=== PATIENT | female | born 1950 | race Caucasian/White ===

== ENCOUNTER → 2017-07-15 08:14 | Outpatient (CLI) | payer MEDICARE, OTHER, SELFPAY ==
[2017-07-15 10:24] LABS: Alanine Aminotransferase 42 U/L (12-78); Albumin Level 3.4 gm/dL (3.4-5.0); Albumin/Globulin Ratio 1.2 (1.1-1.8); Alkaline Phosphatase 90 U/L (46-116); Anion Gap 8.2 mEq/L (5-15); Aspartate Amino Transferase 38 U/L (15-37); Bilirubin,Total 0.4 mg/dL (0.2-1.0); Blood Urea Nitrogen 19 mg/dL (7-18); Calcium 8.5 mg/dL (8.5-10.1); Carbon Dioxide 31 mmol/L (21.0-32.0); Chloride 107 mmol/L (98-107); Chol/HDL Ratio 2.6 (1-3.5); Cholesterol 172 mg/dL (140-200); Creatinine,Serum 0.74 mg/dL (0.55-1.02); Estimated Glomerular Filt Rate 78 ml/min (>60); GFR (African American) 94 ML/MIN (>60); Globulin 2.9 gm/dl (1.3-3.2); Glucose 91 mg/dL (74-106); HDL Cholesterol 67 mg/dL (29-89); LDL Cholesterol 85 mg/dL (0-130); Potassium 4.2 mmoL/L (3.5-5.1); Sodium 142 mmol/L (136-145); Total Protein,Serum 6.3 gm/dL (6.4-8.2); Triglycerides 101 mg/dL (30-200); VLDL Cholesterol 20 mg/dL (0-40)
== END ==
PROVIDERS: PCP Family Medicine; Visit Provider Internal Medicine Cardiovascular Disease
DX: E78.00 Pure hypercholesterolemia, unspecified (principal)
CPT/HCPCS: 36415; 80053; 80061

== ENCOUNTER → 2017-12-26 11:16 | Outpatient (CLI) | payer MEDICARE, OTHER, SELFPAY ==
--- NOTE | 2017-12-26 11:25 | XR_ITS ---
EXAM: XR lumbar spine min 4V HISTORY: ITS.REASON: LOW BACK PAIN ORDERING PHYSICIAN: KEN Coto PATIENT AGE: 67 years COMPARISON: None FINDINGS: Minimal dextroscoliosis. Degenerative disc disease is present from L2 to S1. Small endplate osteophytes are present at L3-L4 and L5. No fracture or dislocation. No lytic or blastic change. Mild facet arthritic changes L5-S1. No lytic or blastic change. IMPRESSION: Degenerative disc disease with facet arthritic change and mild lumbar scoliosis convex right
== END ==
PROVIDERS: PCP Family Medicine; Visit Provider Physician Assistant
DX: M54.5 Low back pain (principal)
CPT/HCPCS: 72110

== ENCOUNTER → 2018-01-02 14:52 | Outpatient (CLI) | payer MEDICARE, OTHER, SELFPAY ==
--- NOTE | 2018-01-02 14:54 | XR_ITS ---
XR DEXA axial skeleton HISTORY: ITS.REASON: POST MENOPAUSAL ORDERING PHYSICIAN: KEN Coto PATIENT AGE: 67 years COMPARISON: None FINDINGS: The BMD measured at the left femoral neck is 0.651 g/cm squared with a T score of -2.8. This is considered Osteoporotic according to the World Health Organization criteria. Fracture risk is High. Treatment is advised. IMPRESSION: Osteoporosis with high fracture risk. Treatment is suggested. Follow-up exam recommended December 2018 to follow the course of the treatment
== END ==
PROVIDERS: Family Provider Family Medicine; PCP Family Medicine; Visit Provider Physician Assistant
DX: Z78.0 Asymptomatic menopausal state (principal)
CPT/HCPCS: 77080

== ENCOUNTER → 2018-10-21 08:44 | Outpatient (CLI) | payer MEDICARE, OTHER, SELFPAY ==
[2018-10-21 14:41] LABS: Alanine Aminotransferase 40 U/L (12-78); Albumin Level 3.8 gm/dL (3.4-5.0); Albumin/Globulin Ratio 1.1 (1.1-1.8); Alkaline Phosphatase 102 U/L (46-116); Anion Gap 15.2 mEq/L (5-15); Aspartate Amino Transferase 31 U/L (15-37); Bilirubin,Total 0.4 mg/dL (0.2-1.0); Blood Urea Nitrogen 25 mg/dL (7-18); Calcium 9.2 mg/dL (8.5-10.1); Carbon Dioxide 27 mmol/L (21.0-32.0); Chloride 104 mmol/L (98-107); Chol/HDL Ratio 3.2 (1-3.5); Cholesterol 177 mg/dL (140-200); Creatinine,Serum 0.73 mg/dL (0.55-1.02); Estimated Glomerular Filt Rate 79 ml/min (>60); GFR (African American) 96 ML/MIN (>60); Globulin 3.4 gm/dl (1.3-3.2); Glucose 95 mg/dL (74-106); HDL Cholesterol 56 mg/dL (29-89); LDL Cholesterol 104 mg/dL (0-130); Potassium 4.2 mmoL/L (3.5-5.1); Sodium 142 mmol/L (136-145); Total Protein,Serum 7.2 gm/dL (6.4-8.2); Triglycerides 84 mg/dL (30-200); VLDL Cholesterol 17 mg/dL (0-40)
== END ==
PROVIDERS: Visit Provider Nurse Practitioner
DX: E78.2 Mixed hyperlipidemia (principal)
CPT/HCPCS: 36415; 80053; 80061

== ENCOUNTER → 2019-12-08 10:28 | Outpatient (CLI) | payer MEDICARE, OTHER, SELFPAY ==
[2019-12-08 12:31] LABS: Alanine Aminotransferase 30 U/L (12-78); Albumin Level 4.1 g/dl (3.5-5.0); Albumin/Globulin Ratio 1.5 (1.1-1.8); Alkaline Phosphatase 107 U/L (38-126); Aspartate Amino Transferase 50 U/L (14-36); Blood Urea Nitrogen 25 mg/dl (7-17); Calcium 9.3 mg/dl (8.4-10.2); Carbon Dioxide 33 mmol/L (22.0-30.0); Chol/HDL Ratio 2.7 (1-3.5); Cholesterol 185 mg/dl (140-200); Estimated Glomerular Filt Rate 83 ml/min (>60); GFR (African American) 100 ML/MIN (>60); Globulin 2.8 g/dL (1.3-3.2); Glucose 99 mg/dl (74-100); HDL Cholesterol 69 mg/dl (40-60); Potassium 4.5 mmoL/L (3.5-5.1); Sodium 140 mmol/L (136-145); Total Protein,Serum 6.9 g/dl (6.3-8.2); Triglycerides 89 mg/dl (30-150); VLDL Cholesterol 18 mg/dL (0-40)
[2019-12-08 12:33] LABS: Bilirubin,Total < 0.1 mg/dl (0.2-1.3)
[2019-12-08 12:39] LABS: Anion Gap 9.5 mEq/L (5-15); Chloride 102 mmol/L (98-107)
[2019-12-08 12:41] LABS: Direct LDL Cholesterol 96.64 mg/dL (100-129)
== END ==
PROVIDERS: Visit Provider Internal Medicine Cardiovascular Disease
DX: E78.2 Mixed hyperlipidemia (principal)
CPT/HCPCS: 36415; 80053; 80061

== ENCOUNTER 2020-04-16 11:47 | Emergency (ER) | payer MEDICARE, OTHER, SELFPAY ==
[2020-04-16 13:28] VITALS: RESP 18; O2SAT 98; BMI 23.3
[2020-04-16 13:30] VITALS: BP 00/00; PULSE 0; RESP 18; TEMP -17.7; TEMP 0; O2SAT 98
== END 2020-04-16 13:31 | disposition home or self-care (01) ==
LOC: UTC 11:54
PROVIDERS: Emergency Provider Nurse Practitioner Family; PCP Family Medicine
DX: Z20.828 Contact with and (suspected) exposure to other viral communicable diseases (principal)
CPT/HCPCS: G0463; 99201; U0003

== ENCOUNTER → 2020-06-28 09:01 | Outpatient (CLI) | payer MEDICARE, OTHER, SELFPAY ==
[2020-06-28 10:47] LABS: Glucose,Fasting 98 mg/dl (74-100)
[2020-06-28 11:13] LABS: Hemoglobin A1C 5.3 % (4.0-6.0)
== END ==
PROVIDERS: PCP Family Medicine; Visit Provider Physician Assistant
DX: R73.01 Impaired fasting glucose (principal)
CPT/HCPCS: 36415; 82947; 83036

== ENCOUNTER → 2020-07-01 10:17 | Outpatient (CLI) | payer MEDICARE, OTHER, SELFPAY ==
--- NOTE | 2020-07-01 10:22 | XR_ITS ---
PROCEDURE: XR DEXA AXIAL SKELETON CLINICAL HISTORY: OSTEOPOROSIS COMPARISON: CR DEXAAX XR DEXA axial skeleton from 01/02/2018 FINDINGS: The right hip BMD is 0.542 with a T-score of -2.8. The left hip BMD is 0.511 with a T-score of -3.0. The lumbar spine BMD is 0.882 with a T-score of -1.5. Previously the lowest density was at the left femoral neck with a T-score -2.8 IMPRESSION: This patient is considered osteoporotic according to the World Health Organization criteria. Fracture risk is high. Treatment is advised. Based on these results a follow-up exam is recommended in 1 year. Dictated by: Fox Chang MD 07/02/2020 08:09 Fox Chang MD in [place] 07/02/2020 08:09
== END ==
PROVIDERS: PCP Family Medicine; Visit Provider Physician Assistant
DX: M81.0 Age-related osteoporosis without current pathological fracture (principal)
CPT/HCPCS: 77080

== ENCOUNTER 2020-07-27 10:05 | Outpatient (CLI) | payer MEDICARE, OTHER, SELFPAY ==
[2020-07-27 10:30] VITALS: BP 152/79; PULSE 71; RESP 18; TEMP 36.2; O2SAT 100
== END 2020-07-27 10:30 | disposition home or self-care (01) ==
LOC: INF 10:10
PROVIDERS: Visit Provider Physician Assistant
DX: M81.0 Age-related osteoporosis without current pathological fracture (principal)
CPT/HCPCS: 96372; J0897

== ENCOUNTER 2020-08-29 17:37 | Emergency (ER) | payer MEDICARE, OTHER, SELFPAY ==
[2020-08-29 17:55] VITALS: BP 146/55; PULSE 77; RESP 14; TEMP 37; O2SAT 95; BMI 17.0
[2020-08-29 18:02] VITALS: BP 139/62; PULSE 73; RESP 14; TEMP 36.6
--- NOTE | 2020-08-29 18:15 | HMH.EDUTC ---
[facility] [place] Disposition Clinical Impression: Viral syndrome, Exposure to COVID-19 virus Disposition: Home, Self-Care Condition on Discharge: Good Instructions: Preventing the Spread of Coronavirus Discharge Instructions Additional Instructions: Drink plenty of fluids. Take tylenol for pain or fever. Return if you begin to have difficulty breathing. Follow up with your regular doctor. GO TO THE ER FOR ANY WORSENING SYMPTOMS Referrals: Lorena Whitley MD [Primary Care Provider] - Time of Disposition: 18:16 Medical Decision Making - Medical Records Medical records reviewed: No: I reviewed the patient's medical records. - Lars Inquiry Pt receiving controlled substance: No Vital Signs: 08/29/20 17:55 08/29/20 18:02 Temperature 98.6 F 98 F Temperature Source Oral Pulse Rate 73 Pulse Rate [Right] 77 Respiratory Rate 14 14 Blood Pressure 139/62 Blood Pressure [Right Arm] 146/55 H Blood Pressure Mean [Right Arm] 85 Blood Pressure Source [Right Arm] Automatic Cuff Blood Pressure Position [Right Arm] Sitting 02 Sat by Pulse Oximetry 95 Oxygen Delivery Method Room Air [facility] [place] HPI - General Stated complaint: covid test Time Seen by Provider: 08/29/20 18:15 Mode of Arrival: Ambulatory Source of Information: Patient Limitations: No Limitations Description of Symptoms (Recalled from Triage Doc. by RN): PT IS HAVING NASAL CONGESTION, COUGH AND SUÁREZ. SHE THINKS ITS A COLD BUT WANTS A COVID TEST TO BE ON THE SAFE SIDE. HEENT Symptoms (Recalled from RN notes): Yes (NASAL CONGESTION AND SUÁREZ) Resp Symptoms (Recalled from RN notes): Yes (COUGH) Skin Symptoms (Recalled from RN notes): No MS Symptoms (Recalled from RN notes): No Functional Status (Recalled from RN notes): NA - History of Present Illness Provider Complaint: She states that for the past 2 days she has had a sore throat, cough and sinus congestion. She denies any known exposure to covid-19, but she wanted to make sure. - Related Data Home Medications Medication Instructions Recorded Confirmed Aspirin [Aspirin 81mg EC Tab] 81 mg PO DAILY 07/27/20 07/27/20 Atorvastatin Calcium [Lipitor 80mg 80 mg PO HS 07/27/20 07/27/20 Tablet*] Calcium Carbonate [Calcium] 1,000 mg PO DAILY 07/27/20 07/27/20 Cholecalciferol (Vitamin D3) 2,000 unit PO DAILY 07/27/20 07/27/20 [Vitamin D3 1,000 Unit Cap] Multivitamin 1 each PO DAILY 07/27/20 07/27/20 Omeprazole 40 mg PO DAILY 07/27/20 07/27/20 PARoxetine HCL [Paxil 10mg Tablet] 10 mg PO DAILY 07/27/20 07/27/20 Potassium Chloride 10 meq PO DAILY 07/27/20 07/27/20 Propranolol HCl [Propranolol HCl 120 mg PO HS 07/27/20 07/27/20 ER] Allergies Allergy/AdvReac Type Severity Reaction Status Date / Time No Known Allergies Allergy Unverified 06/11/17 14:59 - Worker's Comp Is this a Worker's Comp case?: No [facility] History - Hepatitis A Screen Drug use history?: No High risk sexual behaviors?: No History of sexually transmitted infection?: No Currently employed?: No Childcare worker?: No Do you have indoor plumbing?: Yes Do you have electricity?: Yes Attestation statement:: This patient has been screened for Hepatitis A risk factors. I have reviewed the patient's past medical history: Yes Medical History: Reports:: Arrhythmia, Hyperlipidemia Laterality Cases: Right: Lumpectomy, Bilateral: Tonsillectomy - Social History Smoking Status: Unknown if ever smoked Alcohol Intake: never Occupational Status: employed Housing: house Household Members: spouse ROS Obtained: Yes All systems reviewed & no additional complaints - Constitutional Constitutional: Reports system reviewed and no additional complaints, except as docu - Eyes Eyes: Reports system reviewed and no additional complaints, except as docu - ENT Ears, Nose, Mouth, and Throat: Reports system reviewed and no additional complaints, except as docu - Cardiovascular Cardiovascular: Reports system reviewed and no addit
== END 2020-08-29 18:21 | disposition home or self-care (01) ==
PROVIDERS: Emergency Provider Nurse Practitioner Family; PCP Family Medicine
DX: Z20.822 Contact with and (suspected) exposure to COVID-19 (principal); B34.9 Viral infection, unspecified; E78.5 Hyperlipidemia, unspecified; Z79.899 Other long term (current) drug therapy
CPT/HCPCS: G0463; 99202; U0003

== ENCOUNTER 2021-02-01 13:43 | Outpatient (CLI) | payer MEDICARE, OTHER, SELFPAY ==
[2021-02-01 13:45] VITALS: BP 124/63; PULSE 68; RESP 18; TEMP 36.8; O2SAT 98
== END 2021-02-01 14:00 | disposition home or self-care (01) ==
LOC: INF 13:43
PROVIDERS: PCP Family Medicine; Visit Provider Family Medicine
DX: M81.0 Age-related osteoporosis without current pathological fracture (principal)
CPT/HCPCS: 96372; J0897

== ENCOUNTER → 2021-04-28 09:36 | Outpatient (CLI) | payer MEDICARE, OTHER, SELFPAY | PROVIDERS: PCP Family Medicine; Visit Provider Nurse Practitioner | DX: Z20.822 Contact with and (suspected) exposure to COVID-19 (principal) | CPT/HCPCS: C9803; U0003; U0005 ==

== ENCOUNTER → 2021-06-22 12:22 | Outpatient (CLI) | payer MEDICARE, OTHER, SELFPAY ==
[2021-06-22 14:04] LABS: Basophils % 0.6 % (0.1-2.0); Eosinophils # 0.1 K/mm3 (0.0-0.4); Eosinophils % 2.1 % (0.1-12.0); Hematocrit 38.9 % (37.0-47.0); Hemoglobin 12.7 g/dL (12.2-16.2); Lymphocytes # 0.8 K/mm3 (0.7-4.5); Mean Corpuscular HGB Conc 32.7 g/dL (31.8-35.4); Mean Corpuscular Hemoglobin 31.1 pg (27.0-31.2); Mean Corpuscular Volume 95.2 fl (81-99); Mean Platelet Volume 9.7 fl (7.4-10.4); Monocytes # 0.4 K/mm3 (0.1-1.0); Monocytes % 9.4 % (1.7-9.3); Neutrophils # 3.1 K/mm3 (1.8-7.8); Platelet Count 204 K/mm3 (142-424); Red Blood Count 4.08 M/mm3 (4.20-5.40); Red Cell Distribution Width 12.8 % (11.5-17.5); White Blood Count 4.4 K/mm3 (4.8-10.8)
== END ==
PROVIDERS: PCP Family Medicine; Visit Provider Physician Assistant
DX: U07.1 COVID-19 (principal)
CPT/HCPCS: 36415; 85025; C9803; U0003; U0005

== ENCOUNTER → 2021-06-26 07:53 | Outpatient (CLI) | payer MEDICARE, OTHER, SELFPAY | PROVIDERS: PCP Family Medicine; Visit Provider Physician Assistant | DX: U07.1 COVID-19 (principal) ==

== ENCOUNTER → 2021-06-26 15:12 | Outpatient (CLI) | payer MEDICARE, OTHER, SELFPAY ==
[2021-06-26] VITALS (8 sets, daily range): BP systolic 117–147; BP diastolic 60–75; PULSE 61–76; RESP 18; O2SAT 97–99
== END ==
PROVIDERS: Visit Provider Physician Assistant
DX: U07.1 COVID-19 (principal); Z23 Encounter for immunization
CPT/HCPCS: 96365

== ENCOUNTER → 2021-07-03 11:59 | Outpatient (CLI) | payer MEDICARE, OTHER, SELFPAY ==
--- NOTE | 2021-07-03 12:06 | XR_ITS ---
FINAL REPORT CLINICAL HISTORY: COVID TESTING COMPARISON: July 30, 2016 FINDINGS: SINGLE VIEW CHEST. The heart is normal in size. The mediastinum is unremarkable. There is mild bibasilar scarring or atelectasis. There is no pneumothorax. IMPRESSION: Mild bibasilar scarring or atelectasis. Reviewed, Interpreted and Dictated by Henry Gil III, MD Transcribed by Geena Salcido Authenticated by Henry Gil III, MD on 07/03/2021 01:24:01 PM [facility]
[2021-07-03 12:38] LABS: Basophils # 0.1 K/mm3 (0-0.2); Basophils % 0.8 % (0.1-2.0); Eosinophils % 0.7 % (0.1-12.0); Hematocrit 41.3 % (37.0-47.0); Hemoglobin 13.4 g/dL (12.2-16.2); Lymphocytes # 1.1 K/mm3 (0.7-4.5); Lymphocytes % 16.5 % (10-50); Mean Corpuscular HGB Conc 32.5 g/dL (31.8-35.4); Mean Corpuscular Hemoglobin 30.8 pg (27.0-31.2); Mean Corpuscular Volume 94.6 fl (81-99); Mean Platelet Volume 9.1 fl (7.4-10.4); Monocytes # 0.5 K/mm3 (0.1-1.0); Monocytes % 6.8 % (1.7-9.3); Neutrophils # 5.1 K/mm3 (1.8-7.8); Neutrophils % 75.2 % (37.0-80.0); Platelet Count 190 K/mm3 (142-424); Red Blood Count 4.36 M/mm3 (4.20-5.40); Red Cell Distribution Width 12.8 % (11.5-17.5); White Blood Count 6.8 K/mm3 (4.8-10.8)
== END ==
PROVIDERS: PCP Nurse Practitioner Family; Visit Provider Nurse Practitioner Family
DX: Z20.822 Contact with and (suspected) exposure to COVID-19 (principal)
CPT/HCPCS: 36415; 71045; 85025

== ENCOUNTER → 2021-08-03 10:23 | Outpatient (CLI) | payer MEDICARE, OTHER, SELFPAY ==
[2021-08-03 12:55] LABS: Alanine Aminotransferase 37 U/L (12-78); Albumin Level 3.9 g/dl (3.5-5.0); Albumin/Globulin Ratio 1.5 (1.1-1.8); Alkaline Phosphatase 95 U/L (38-126); Anion Gap 9.5 mEq/L (5-15); Aspartate Amino Transferase 52 U/L (14-36); Bilirubin,Total 0.5 mg/dl (0.2-1.3); Blood Urea Nitrogen 22 mg/dl (7-17); Carbon Dioxide 31 mmol/L (22.0-30.0); Chloride 104 mmol/L (98-107); Chol/HDL Ratio 2.7 (1-3.5); Cholesterol 142 mg/dl (140-200); Estimated Glomerular Filt Rate 98 ml/min (>60); GFR (African American) 119 ML/MIN (>60); Globulin 2.6 g/dL (1.3-3.2); Glucose 90 mg/dl (74-100); HDL Cholesterol 53 mg/dl (40-60); Potassium 4.5 mmoL/L (3.5-5.1); Sodium 140 mmol/L (136-145); Total Protein,Serum 6.5 g/dl (6.3-8.2); Triglycerides 85 mg/dl (30-150); VLDL Cholesterol 17 mg/dL (0-40)
[2021-08-03 13:06] LABS: Direct LDL Cholesterol 70.15 mg/dL (100-129)
== END ==
PROVIDERS: PCP Family Medicine; Visit Provider Internal Medicine Cardiovascular Disease
DX: E78.2 Mixed hyperlipidemia (principal)
CPT/HCPCS: 36415; 80053; 80061

== ENCOUNTER 2021-08-14 10:06 | Outpatient (CLI) | payer MEDICARE, OTHER, SELFPAY ==
[2021-08-14 10:17] VITALS: BP 131/83; PULSE 82; RESP 18; TEMP 36.4; O2SAT 99
== END 2021-08-14 10:45 | disposition home or self-care (01) ==
LOC: INF 10:08
PROVIDERS: PCP Family Medicine; Visit Provider Family Medicine
DX: M81.0 Age-related osteoporosis without current pathological fracture (principal)
CPT/HCPCS: 96372; J0897

== ENCOUNTER 2021-11-24 13:23 | Emergency (ER) | payer MEDICARE, OTHER, SELFPAY ==
[2021-11-24 13:36] VITALS: BP 143/58; PULSE 70; RESP 17; TEMP 37.1; O2SAT 99; BMI 21.6
--- NOTE | 2021-11-24 14:10 | HMH.EDUTC ---
[facility] [place] Disposition Clinical Impression: Viral syndrome Disposition: Home, Self-Care Condition on Discharge: Good Instructions: DI for COVID-19 (Suspected or Confirmed ), Preventing the Spread of Coronavirus Discharge Instructions Additional Instructions: Drink plenty of fluids. Take tylenol for pain or fever. Take the medications as directed. Follow up with your regular doctor. GO TO THE ER FOR ANY WORSENING SYMPTOMS Quarantine until you know the results of your covid-19 test. Notify your school or workplace of your results and follow their instructions regarding return to work/school. Prescriptions: Ondansetron [Zofran 4mg ODT] 4 mg PO Q8HP PRN #20 tab PRN Reason: Nausea Transmission Status: Received by [id number] Benzonatate [Benzonatate 100mg cap] 100 mg PO TIDP PRN #30 cap PRN Reason: Cough Transmission Status: Received by [id number] Referrals: Lorena Whitley MD [Primary Care Provider] - Time of Disposition: 14:27 Medical Decision Making - Medical Records Medical records reviewed: No: I reviewed the patient's medical records. - Lars Inquiry Pt receiving controlled substance: No Vital Signs: 11/24/21 13:36 Temperature 98.7 F Temperature Source Oral Pulse Rate [Left Radial] 70 Respiratory Rate 17 Blood Pressure [Right Arm] 143/58 H Blood Pressure Mean [Right Arm] 86 02 Sat by Pulse Oximetry 99 - Lab Data Lab results reviewed: Yes: I reviewed the patient's lab results. Orders (Tests/Meds): ORDERS Category Date Time Status Covid-19 Nasal PCR ([facility]) Routine Lab 11/24/21 13:36 Ordered [facility] [place] HPI - General Stated complaint: sore throat,cough,headache Time Seen by Provider: 11/24/21 14:10 Source of Information: Patient Description of Symptoms (Recalled from Triage Doc. by RN): patient comes in for a covid test. patient states she has had respiratory symptoms since saturday HEENT Symptoms (Recalled from RN notes): No Resp Symptoms (Recalled from RN notes): Yes Skin Symptoms (Recalled from RN notes): No MS Symptoms (Recalled from RN notes): No Functional Status (Recalled from RN notes): wnl - History of Present Illness Provider Complaint: She states that for the past 3 days she has had a nonproductive cough and a scratchy sore throat. She denies any fever or chills or body aches, but she wants to be checked for covid-19 just to be safe because she is going to have to be around several other people in a few days and she does not want to take a chance on giving anyone covid-19. She denies any chest pain and shortness of breath. - Related Data Home Medications Medication Instructions Recorded Confirmed Aspirin [Aspirin 81mg EC Tab] 81 mg PO DAILY 07/27/20 08/14/21 Atorvastatin Calcium [Lipitor 80mg 80 mg PO HS 07/27/20 08/14/21 Tablet*] Calcium Carbonate [Calcium] 1,000 mg PO DAILY 07/27/20 08/14/21 Cholecalciferol (Vitamin D3) 2,000 unit PO DAILY 07/27/20 08/14/21 [Vitamin D3 1,000 Unit Cap] Multivitamin 1 each PO DAILY 07/27/20 08/14/21 Omeprazole 40 mg PO DAILY 07/27/20 08/14/21 PARoxetine HCL [Paxil 10mg Tablet] 10 mg PO DAILY 07/27/20 08/14/21 Potassium Chloride 10 meq PO DAILY 07/27/20 08/14/21 Propranolol HCl [Propranolol HCl 120 mg PO HS 07/27/20 08/14/21 ER] Previous Rx's Medication Instructions Recorded Benzonatate [Benzonatate 100mg 100 mg PO TIDP PRN #30 cap 11/24/21 cap] Ondansetron [Zofran 4mg ODT] 4 mg PO Q8HP PRN #20 tab 11/24/21 Allergies Allergy/AdvReac Type Severity Reaction Status Date / Time No Known Allergies Allergy Verified 11/24/21 13:40 - Worker's Comp Is this a Worker's Comp case?: No [facility] History - Hepatitis A Screen Attestation statement:: This patient has been screened for Hepatitis A risk factors. I have reviewed the patient's past medical history: Yes Medical History: Reports:: Arrhythmia, Hyperlipidemia Denies:: Cancer, Diabetes Mellitus Type 1,
[2021-11-24 14:28] VITALS: BP 143/58; PULSE 70; RESP 17; TEMP 37.1
== END 2021-11-24 14:31 | disposition home or self-care (01) ==
PROVIDERS: Emergency Provider Nurse Practitioner Family; PCP Family Medicine
DX: B34.9 Viral infection, unspecified (principal)
CPT/HCPCS: 99212; C9803; G0463; U0003; U0005

== ENCOUNTER 2022-02-16 10:10 | Outpatient (CLI) | payer MEDICARE, OTHER, SELFPAY ==
[2022-02-16 10:30] VITALS: BP 156/72; PULSE 64; RESP 18; O2SAT 98
== END 2022-02-16 10:30 | disposition home or self-care (01) ==
LOC: INF 10:11
PROVIDERS: PCP Family Medicine; Visit Provider Psychiatry & Neurology Sleep Medicine
DX: M81.0 Age-related osteoporosis without current pathological fracture (principal)
CPT/HCPCS: 96372; J0897

== ENCOUNTER 2022-08-22 10:17 | Outpatient (CLI) | payer MEDICARE, OTHER, SELFPAY ==
[2022-08-22 10:30] VITALS: BP 139/64; PULSE 60; RESP 18; O2SAT 98
== END 2022-08-22 10:45 | disposition home or self-care (01) ==
PROVIDERS: PCP Family Medicine; Visit Provider Family Medicine
DX: M81.0 Age-related osteoporosis without current pathological fracture (principal)
CPT/HCPCS: 96401; J0897

== ENCOUNTER 2023-03-01 10:48 | Outpatient (CLI) | payer MEDICARE, OTHER, SELFPAY ==
[2023-03-01 11:03] VITALS: BP 120/82; PULSE 66; RESP 18; O2SAT 99
== END 2023-03-01 11:15 | disposition home or self-care (01) ==
LOC: INF 10:50
PROVIDERS: PCP Family Medicine; Visit Provider Family Medicine
DX: M81.0 Age-related osteoporosis without current pathological fracture (principal)
CPT/HCPCS: 96372; J0897

== ENCOUNTER → 2023-05-17 08:43 | Outpatient (CLI) | payer MEDICARE, OTHER, SELFPAY ==
--- NOTE | 2023-05-17 08:52 | XR_ITS ---
FINAL REPORT CLINICAL HISTORY: OSTEOPOROSIS COMPARISON: 07/01/2020 FINDINGS: Using L1-4, the bone mineral density of the spine is 1.053 g/cm2, corresponding to T-score of 0.1, within normal limits but likely falsely elevated secondary to hypertrophic changes. Previously 0.882 g/cm? with a T-score of -1.5. Using the left hip, the bone mineral density of the femoral neck is 0.527 g/cm2, corresponding to a T-score of -2.9, consistent with osteoporosis. Previously 0.511 g/cm? with a T-score of -3.0. Using the right hip, the bone mineral density of the femoral neck is 0.573 g/cm2, corresponding to a T-score of -2.5, consistent with osteoporosis. Previously 0.542 g/cm? with a T-score of -2.8. FRAX not reported because some T-score at or below -2.5, treated for osteoporosis. NOTE: T-score: Standard deviation compared with peak bone mass of young adult mean. *Following the recommendations of the International Society of Bone densitometry, classification of hip BMD is based on the lower of two T-scores; total hip or femoral neck. IMPRESSION: Diminished bone mineral density consistent with osteoporosis. Reviewed, Interpreted and Dictated by Henry Gil III, MD Transcribed by Michelle Hylton Authenticated and [facility]
== END ==
PROVIDERS: PCP Family Medicine; Visit Provider Physician Assistant
DX: M81.0 Age-related osteoporosis without current pathological fracture (principal)
CPT/HCPCS: 77080

== ENCOUNTER 2023-09-04 10:09 | Outpatient (CLI) | payer MEDICARE, OTHER, SELFPAY ==
[2023-09-04 10:15] VITALS: BP 136/87; PULSE 57; RESP 18; TEMP 36.4; O2SAT 98
[2023-09-04] MEDS: DENOSUMAB 60 MG/ML SYRINGE SQ (10:15)
== END 2023-09-04 10:40 | disposition home or self-care (01) ==
LOC: INF 10:10
PROVIDERS: PCP Family Medicine; Visit Provider Family Medicine
DX: M81.0 Age-related osteoporosis without current pathological fracture (principal)
CPT/HCPCS: 96372; J0897

== ENCOUNTER 2024-06-03 09:20 | Outpatient (CLI) | payer MEDICARE, OTHER, SELFPAY ==
[2024-06-03 09:30] VITALS: BP 153/63; PULSE 74; RESP 16; O2SAT 99
[2024-06-03] MEDS: DENOSUMAB 60 MG/ML SYRINGE SUBCUT (09:30)
== END 2024-06-03 09:40 | disposition home or self-care (01) ==
PROVIDERS: PCP Family Medicine; Visit Provider Family Medicine
DX: M81.0 Age-related osteoporosis without current pathological fracture (principal)
CPT/HCPCS: 96372; J0897

== ENCOUNTER 2024-07-31 15:43 | Outpatient (CLI) | payer MEDICARE, OTHER, SELFPAY ==
[2024-08-02 16:14] LABS: H. pylori Breath Test Negative (Negative)
== END 2024-07-31 23:59 | disposition home or self-care (01) ==
LOC: LAB 15:46
PROVIDERS: PCP Physician Assistant; Visit Provider Physician Assistant
DX: R10.9 Unspecified abdominal pain (principal)
CPT/HCPCS: 83013

== ENCOUNTER 2024-12-03 09:33 | Outpatient (CLI) | payer MEDICARE, OTHER, SELFPAY ==
--- OUTSIDE RECORDS SUMMARY | 2024-07-31 10:45 | XMS_ITS ---
Author Organization [facility] Address [address] [facility] [address] [place] [id number] Care Team Providers Care Hr Payroll Coordinator Name Role Phone Marlene Whitley Primary Care Provider [phone] Princess Cheek Unavailable [phone] Allergies Allergen (clinical drug ingredient) Drug/Non Drug Allergy documented on EMR Reaction Allergy Type Onset Date Status methylprednisolone Medrol heart racing Drug Allergy Active Results Component Value Reference Range Notes CBC Fingerstick (in house) Reviewed date:08/02/2024 10:23:31 PM Interpretation: Performing Lab: Notes/Report: wbc 4.7 3.5 - 10 lym 34.1 15 - 50 mid 9.3 2 - 15 gran 56.6 35 - 80 rbc 4.43 3.5 - 5.5 hgb 13.5 11.5 - 16.5 hct 39.7 35 - 55 mcv 89.4 75 - 100 mch 30.4 25 - 35 mchc 34.0 31 - 38 plat 159 100 - 400 Urea breath test Reviewed date:08/03/2024 10:09:46 AM Interpretation: Performing Lab: Notes/Report: REASON FOR VISIT stomach problems Medications Medication SIG (Take, Route, Frequency, Duration) Notes Start Date End Date Status Bisoprolol Fumarate 10 MG 1 tablet Orall y Two times a day Active Aspir-Low 81 MG 1 cap(s) orally once daily Active Nystatin 902125 UNIT/ML 5 ml Mouth/Throa t Four times a day 07/31/2024 Active Calcium 500 MG 1 tablet with meals Orally Twice a day for 30 day(s) Active Pantoprazole Sodium 40 MG 1 tablet 1 katelyn r before morning meal Orally Once a day Active Potassium Chloride ER 10 MEQ Take 1 capsule by mouth once daily for 90 Active metroNIDAZOLE 500 MG 1 tablet Orally Thr ee times a day for 10 day(s) 07/22/2024 Active Multivitamin 1 TAB ONCE A DAY Active Prolia 60 MG/ML as directed subcutan eously every 6 months 07/07/2020 Active Lipitor 80 MG 1 tab(s) orally Two times a day Active Hyoscyamine Sulfate 0.125 MG 1 tablet on the tongue and allow to dissolve as needed Orally four times a day as needed Active Vital Signs Blood pressure systolic 126 mm Hg 07/31/19 25 Blood pressure diastolic 82 mm Hg 025 Heart Rate 52 /min 07/31/2024 Height 59 in 07/31/2024 Weight 111.6 lbs 07/31/2024 BMI 22.54 kg/m2 07/31/2024 Encounters Encounter Location Date Provider Diagnosis [facility] [address] [facility] [address] [place], [place] [id number] 07/31/2024 Princess Cheek Epigastric abdominal pain R10.13 ; Abdominal cramps R10.9 and Thrush, oral B37.0 Assessments Encounter Date Diagnosis (ICD Code) Assessment Notes Treatment Notes Treatment Clinical Notes Section Notes 07/31/2024 Epigastric abdominal pain (ICD-10 - R10.13) 07/31/2024 Abdominal cramps (ICD-10 - R10.9) Will stop abx and recheck another stool panel. Will also check a urea breath test. Will try the levsin. She has an appt with her GI but it is not until September. She will likely need an EGD/C-scope. 07/31/2024 Thrush, oral (ICD-10 - B37.0) Plan Of Treatment Medication Medication Name Sig Start Date Stop Date Notes Nystatin 564374 UNIT/ML 5 ml Mouth/Throa t Four times a day 07/31/2024 Hyoscyamine Sulfate 0.125 MG 1 tablet on the tongue and allow to dissolve as needed Orally four times a day as needed Treatment Notes Assessment Notes Abdominal cramps Will stop abx and re check another stool panel. Will also check a urea breath test. Will try the levsin. She has an appt with her GI but it is not until September. She will likely need an EGD/C-scope. Next Appt Details Follow Up: via phone to repo rt test results, Reason: Progress Notes * KRAIG ZAVALADOB:1950 (74 yo F)Acc No.[id number]:07/31/2024 Progress Notes Patient: KRAIG MARRERO Provider: KEN Leung :1950 A ge:74 Y S ex:Female Date:07/31/2024 Address:[address], [id number] Pcp:Marlene Whitley Subjective: * Chief Complaints: * 1 . Stomach problems. * HPI: G astroenterology: 74 year old female presents with c/o Abdominal Pain P t sts she is still having issues with her stomach. Her stools are no longer green since taking the antibiotics but she is still nauseated and having abdominal cramps. The antiobiotics seemed to make that worse. She has not tried any of the levsin.. * ROS: D ERMATOLOGY: no R desmond. n o H torres. G ASTROENTEROLOGY: no N ausea. n o V omiting. n o D iarrhea.? U ROLOGY: no D ifficulty urinating. n o B lood in urine. * Medical History: O steopenia, Hematuria, chronic, Dysrhthmia, Right carotid bruit/disease, Irritable bowel syndrome, Fibromuscular Dysplasia. * Family History: F ather: alive. M other: alive. 2 brother(s) , 1 sister(s) . 1 son(s) , 1 daughter(s) . . * Social History: C URRENT TOBACCO USE S moking Status: Patient does NOT smoke. C affeine: no. Marital Status: . Past smoking status: no. Alcohol: no. * Medications: T aking Hyoscyamine Sulfate 0.125 MG Tablet Disintegrating 1 tablet on the tongue and allow to dissolve as needed Orally four times a day as needed , Taking Bisoprolol Fumarate 10 MG Tablet 1 tablet Orally Two times a day , Taking Calcium 500 MG Tablet 1 tablet with meals Orally Twice a day , Taking Pantoprazole Sodium 40 MG Tablet Delayed Release 1 tablet 1 hour before morning meal Orally Once a day , Taking Aspir-Low 81 MG Tablet Delayed Release 1 cap(s) orally once daily , Taking Lipitor 80 MG Tablet 1 tab(s) orally Two times a day , Taking Multivitamin 1 TAB ONCE A DAY , Taking Prolia 60 MG/ML Solution Prefilled Syringe as directed subcutaneously every 6 months , Taking Potassium Chloride ER 10 MEQ Capsule Extended Release Take 1 capsule by mouth once daily , Taking metroNIDAZOLE 500 MG Tablet 1 tablet Orally Three times a day , Medication List reviewed and reconciled with the patient * Allergies: M edrol: heart racing. Objective: * Vitals: W t:111.6, Temp:97.7, BP:126/82, HR:52, O2 Sat:98% on RA, Nurse:luci, Ht: 59, BMI:22.54. * Examination: G astroenterology: General Appearance: p adrianne, NAD. Oral cavity: white patches on tongue and buccal mucosa.? Sclera: a nicteric. Heart sounds: r egular, normal S1 S2, no murmurs. Lungs: c lear, no rales or wheezes. Abdomen: BS present, soft, no guarding or rigidity, diffusely tender. Hernias: n one. Assessment: * Assessment: 1. E pigastric abdominal pain - R10.13 (Primary) 2 . A bdominal cramps - R10.9 3 . T hrush, oral - B37.0 Plan: * Treatment: Value Reference Range w bc 4.7 3.5 - 10 * l ym 34.1 15 - 50 * m id 9.3 2 - 15 * g ran 56.6 35 - 80 * r bc 4.43 3.5 - 5.5 * h gb 13.5 11.5 - 16.5 * h ct 39.7 35 - 55 * m cv 89.4 75 - 100 * m ch 30.4 25 - 35 * m chc 34.0 31 - 38 * p lat 159 100 - 400 * Khushi Vidal 07/31/2024 3:16:2 1 PM > Provider reviewed results while patient in office. 2.?Abdominal cramps? Continue Hyoscyamine Sulfate Tablet Disintegrating, 0.125 MG, 1 tablet on the tongue and allow to dissolve as needed, Orally, four times a day as needed, 30, Refills 1.?LAB: Urea breath test (Collection Date & Time - 08/03/2024)* see duplicate order Notes: Will stop abx and recheck another stool panel. Will also check a urea breath test. Will try the levsin. She has an appt with her GI but it is not until September. She will likely need an EGD/C-scope.??3.?Thrush, oral? Start Nystatin Suspension, 482661 UNIT/ML, 5 ml, Mouth/Throat, Four times a day, 200 mL, Refills 1. ? * Procedure Codes: G 2211 Complex e/[place], [address] CAPILLARY BLOOD DRAW, 20896 CBC WITH AUTO DIFF, 3074F SYST BP LT 130 MM HG, 3079F DIAST BP 80-89 MM HG * Follow Up: v ia phone to report test results * Billing Information: * Visit Code: 71237 Office Visit, Est Pt., Level 3. * Procedure Codes: G2211 Complex e/[place]. [address] CAPILLARY BLOOD DRAW. 48313 CBC WITH AUTO DIFF. 3074F SYST BP LT 130 MM HG. 3079F DIAST BP 80-89 MM HG. * Electronic signature of KEN Schrader on 12/03/2024 at 09:46 AM EDT Sign off status: Pending * Provider: KEN Leung Date: 0 07/31/2024 Generated for Chip parson/Meredith/eTransmitting on: 0 12/03/2024 09:46 AM EDT History and Physical Notes * HPI (History of Present Illness) Category Sub-Category Detail Notes Category Not es Gastroenterology Abdominal Pain Pt sts she is s till having issues with her stomach. Her stools are no longer green since taking the antibiotics but she is still nauseated and having abdominal cramps. The antiobiotics seemed to make that worse. She has not tried any of the levsin. Examination Category Sub-Category Detail Notes Category Not es Gastroenterology Oral cavity: white patches o n tongue and buccal mucosa Sclera: anicteric Heart sounds: regular, normal S1 S 2, no murmurs Lungs: clear, no rales or w heezes Abdomen: BS present, soft, no guarding or rigidity, diffusely tender Hernias: none General Appearance: pleasant, NAD
--- OUTSIDE RECORDS SUMMARY | 2024-08-03 07:00 | XMS_ITS ---
Author Organization [facility] Address [address] [facility] [address] [place] [id number] Care Team Providers Care Pot Puncher Name Role Phone Marlene Whitley Primary Care Provider [phone] Princess Cheek Unavailable [phone] REASON FOR VISIT stool sample Medications Medication SIG (Take, Route, Frequency, Duration) Notes Start Date End Date Status Prolia 60 MG/ML as directed subcutan eously every 6 months 07/07/2020 Active Hyoscyamine Sulfate 0.125 MG 1 tablet on the tongue and allow to dissolve as needed Orally four times a day as needed Active Nystatin 875696 UNIT/ML 5 ml Mouth/Throa t Four times a day 07/31/2024 Active metroNIDAZOLE 500 MG 1 tablet Orally Thr ee times a day for 10 day(s) 07/22/2024 Active Potassium Chloride ER 10 MEQ Take 1 capsule by mouth once daily for 90 Active Multivitamin 1 TAB ONCE A DAY Active Lipitor 80 MG 1 tab(s) orally Two times a day Active Aspir-Low 81 MG 1 cap(s) orally once daily Active Pantoprazole Sodium 40 MG 1 tablet 1 katelyn r before morning meal Orally Once a day Active Calcium 500 MG 1 tablet with meals Orally Twice a day for 30 day(s) Active Bisoprolol Fumarate 10 MG 1 tablet Orall y Two times a day Active Encounters Encounter Location Date Provider Diagnosis [facility] [address] [place] [id number] 08/03/2024 Princess Cheek Plan Of Treatment No Information Progress Notes * JONO ZAVALAB:1950 (74 yo F)Acc No.[id number]:08/03/2024 Patient: KRAIG MARRERO Provider: KEN Leung :1950 A ge:74 Y S ex:Female Date:08/03/2024 Address[place], [id number] Pcp:Marlene Whitley Subjective: * Chief Complaints: * 1 . Stool sample. * Medical History: * Medications: T aking Bisoprolol Fumarate 10 MG Tablet 1 tablet [...] tablet Orally Three times a day , Taking Nystatin 221583 UNIT/ML Suspension 5 ml Mouth/Throat Four times a day , Taking Hyoscyamine Sulfate 0.125 MG Tablet Disintegrating 1 tablet on the tongue and allow to dissolve as needed Orally four times a day as needed , Medication List reviewed and reconciled with the patient Objective: * Vitals: Assessment: Plan: * Treatment: * Billing Information: * Visit Code: * Procedure Codes: * Electronic signature of KEN Schrader on 12/03/2024 at 09:45 AM EDT Sign off status: Pending * Provider: KEN Leung Date: 0 08/03/2024 Generated for Chip parson/Meredith/[place] on: 0 12/03/2024 09:45 AM EDT
--- OUTSIDE RECORDS SUMMARY | 2024-09-02 07:15 | XMS_ITS ---
Author Organization [facility] Address [address] [facility] [address] [place] [id number] Care Team Providers Care Chip Separator Name Role Phone Marlene Whitley Primary Care Provider Adia Princess Unavailable [phone] Allergies Allergen (clinical drug ingredient) Drug/Non Drug Allergy documented on EMR Reaction Allergy Type Onset Date Status methylprednisolone Medrol heart racing Drug Allergy Active Results Component Value Reference Range Notes P-Vitamin D 25-Hydroxy Reviewed date:09/03/2024 04:47:17 PM Interpretation: Performing Lab: Notes/Report: Test performed by [facility], [employer] [address] [place] [address] , [address], [place] [address] Mo Burciaga MD, Residential Program Director CLIA: [id number] Vitamin D 25-Hydroxy 98.7 30.0-100.0 ng/mL Interpretation of Vitamin D 25 OH: < 20 ng/mL - Deficiency 20 - 29 ng/mL - Insufficiency 30 - 100 ng/mL - Sufficiency > 100 ng/mL - Super-therapeutic- toxicity may occur above this level. Clinical correlation required. REASON FOR VISIT thrush in mouth Medications Medication SIG (Take, Route, Frequency, Duration) Notes Start Date End Date Status Multivitamin 1 TAB ONCE A DAY Active Hyoscyamine Sulfate 0.125 MG 1 tablet on the tongue and allow to dissolve as needed Orally four times a day as needed Active Nystatin 345783 UNIT/ML 5 ml Mouth/Throa t Four times a day 07/31/2024 Active Prolia 60 MG/ML as directed subcutan eously every 6 months 07/07/2020 Active Potassium Chloride ER 10 MEQ Take 1 capsule by mouth once daily for 90 Active Lipitor 80 MG 1 tab(s) orally Two times a day Active Pantoprazole Sodium 40 MG 1 tablet 1 katelyn r before morning meal Orally Once a day Active Aspir-Low 81 MG 1 cap(s) orally once daily Active Bisoprolol Fumarate 10 MG 1 tablet Orall y Two times a day Active Calcium 500 MG 1 tablet with meals Orally Twice a day for 30 day(s) Active Fluconazole 150 MG 1 tablet Orally once daily 08/22 Active Vital Signs Blood pressure systolic 134 mm Hg 09/03/19 25 Blood pressure diastolic 70 mm Hg 025 Heart Rate 63 /min 09/02/2024 Height 59 in 09/02/2024 Weight 110.8 lbs 09/02/2024 BMI 22.38 kg/m2 09/02/2024 Encounters Encounter Location Date Provider Diagnosis [facility] [address] [facility] [address] [place] [id number] 09/02/2024 Princess Cheek Vitamin D deficiency E55.9 and Thrush, oral B37.0 Assessments Encounter Date Diagnosis (ICD Code) Assessment Notes Treatment Notes Treatment Clinical Notes Section Notes 09/02/2024 Vitamin D deficiency (ICD-10 - E55.9) 09/02/2024 Thrush, oral (ICD-10 - B37.0) Plan Of Treatment Medication Medication Name Sig Start Date Stop Date Notes Fluconazole 150 MG 1 tablet Orally once daily 09/02/2024 Next Appt Details Follow Up: via phone to repo rt test results, Reason: Progress Notes * LUCAS KRAIGDOB:1950 (74 yo F)Acc No.[id number]:09/02/2024 Progress Notes Patient: KRAIG MARRERO Provider: KEN Leung :1950 A ge:74 Y S ex:Female Date:09/02/2024 Address:[address] [place] [id number] Pcp:Marlene Whitley Subjective: * Chief Complaints: * 1 . Thrush in mouth. * HPI: E NT/respiratory: The patient is here today with c/o thrush in her mouth for several week. Pt states she is on her 4 th bottle of nystatin suspension without any relief. Pt states she has tried salt water rinses and baking soda with out any relief. 74 year old female presents with c/o Thrush. * ROS: D ERMATOLOGY: no R desmond. [...] no. Alcohol: no. * Medications: T aking Bisoprolol Fumarate 10 [...] capsule by mouth once daily , Taking Hyoscyamine Sulfate 0.125 MG Tablet Disintegrating 1 tablet on the tongue and allow to dissolve as needed Orally four times a day as needed , Taking Nystatin 332748 UNIT/ML Suspension 5 ml Mouth/Throat Four times a day , Medication List reviewed and reconciled with the patient * Allergies: M edrol: heart racing. Objective: * Vitals: W t:110.8, Temp:97.7, BP:134/70, HR:63, Nurse:ANDREAS, Ht: 59, BMI:22.38. * Examination: E NT/Respiratory: General Appearance: N AD. Ears: a uditory canals normal bilaterally, TM's WNL. Nose : n ormal, no lesions, nares patent. Sinuses : non tender bilaterally. Oral cavity : white patches on tongue and buccal mucosa.? Neck : n o cervical lymphadenopathy. Heart : R RR, normal S1 S2, no murmurs. Lungs: c lear to auscultation bilaterally. Assessment: * Assessment: 1. T hrush, oral - B37.0 (Primary) 2 . V itamin D deficiency - E55.9 ? Plan: * Treatment: 2. V itamin D deficiency L AB: P-Vitamin D 25-Hydroxy (Collection Date & Time - 09/02/2024 10:43 AM) Value Reference Range V itamin D 25-Hydroxy 98.7 30.0-100.0 - ng/mL * Princess Cheek 09/03/2024 4: 47:14 PM > see TE * Procedure Codes: G 2211 Complex e/m visit add on, 3075F SYST BP GE 130 - 139MM HG, 3078F DIAST BP < 80 MM HG * Follow Up: v ia phone to report test results * Billing Information: * Visit Code: 33722 Office Visit, Est Pt., Level 3. * Procedure Codes: G2211 Complex e/m visit add on. 3075F SYST BP GE 130 - 139MM HG. 3078F DIAST BP < 80 MM HG. * Electronic signature of KEN Schrader on 12/03/2024 at 09:46 AM EDT Sign off status: Pending * Provider: KEN Leung Date: 0 09/02/2024 Generated for Chip parson/Fadoreen/eTransmitting on: 0 12/03/2024 09:46 AM EDT History and Physical Notes * HPI (History of Present Illness) Category Sub-Category Detail Notes Category Not es ENT/respiratory Thrush Examination Category Sub-Category Detail Notes Category Not es ENT/Respiratory Oral cavity : white patches on tongue and buccal mucosa Sinuses : non tender bilateral ly Ears: auditory canals norm al bilaterally, TM's WNL Neck : no cervical lymphade nopathy Heart : RRR, normal S1 S2, n o murmurs Lungs: clear to auscultatio n bilaterally General Appearance: NAD Nose : normal, no lesions, nares patent
[2024-12-03 09:45] VITALS: BP 128/83; PULSE 65; RESP 20; TEMP 36.6; O2SAT 100
[2024-12-03] MEDS: DENOSUMAB 60 MG/ML SYRINGE SUBCUT (09:45)
--- OUTSIDE RECORDS SUMMARY | 2024-12-03 09:46 | XMS_ITS | Clinical Summary ---
Author Organization Healthcare Address [address] [place] [address] Care Team Providers Care Stewardesses Teacher Name Role Phone Unavailable Primary Care Provider Unavailabl e Family History Medical History Relation Name Comments Diabetes Father Stroke Other Relation Name Status Comments Father Other Social History Tobacco Use Types Packs/Day Years Used Date Smoking Tobacco: Never Alcohol Use Standard Drinks/Week Comments No 0 (1 standard drink = 0.6 oz pur e alcohol) Comments Unknown Sex and Gender Information Value Date Recorded Sex Assigned at Not on file Legal Sex Female 6:01 PM EDT Gender Identity Not on file Sexual Orientation Not on file Last Filed Vital Signs Vital Sign Reading Time Taken Comments Blood Pressure - - Pulse - - Temperature - - Respiratory Rate - - Oxygen Saturation - - Inhaled Oxygen Concentration - - Weight 54.9 kg (121 lb 0.5 oz) 11/17/2014 9:34 A M EDT Height 151.1 cm (4' 11.5 ) 11/17/2014 9:34 AM ED T Body Mass Index 24.04 11/17/2014 9:34 AM EDT Plan of Treatment Not on file
--- OUTSIDE RECORDS SUMMARY | 2024-12-03 09:47 | XMS_ITS | Patient Health Record ---
Author Organization [facility] Address [address] [place] [id number] Care Team Providers Care Milk Vendor Name Role Phone Marlene Whitley Primary Care Provider [phone] Princess Cheek Unavailable [phone] Allergies Allergen (clinical drug ingredient) Drug/Non Drug [...] date:08/03/2024 10:09:46 AM Interpretation: Performing Lab: Notes/Report: Covid test (in house) Reviewed date:04/28/2024 11:39:25 AM Interpretation:Negative Performing Lab: Notes/Report: Negative Result: Neg P-Comprehensive Metabolic Pa augusto (CMP) Reviewed date:05/15/2024 02:12:44 PM Interpretation:alk phos 134 Performing Lab: Notes/Report: Test performed by [employer], [facility] , [address], [place] [address] Mo Burciaga MD, Relief Pilot CLIA: [id number] Sodium 144 135-145 mmol/L Potassium 4.9 3.5-5.3 mmol/L Chloride 103 97-108 mmol/L CO2 28 22-32 mmol/L Glucose 95 65-99 mg/dL BUN 21 8-23 mg/dL Creatinine 0.77 0.50-1.00 mg/dL Calcium 9.6 8.6-10.4 mg/dL eGFR by Creatinine 80 >59 mL/min/1.73m2 Protein 6.8 6.0-8.3 g/dL Albumin 3.8 3.5-5.3 g/dL Alkaline Phosphatase 134 35-121 IU/L ALT (SGPT) 26 <5-47 IU/L AST (SGOT) 31 <5-40 IU/L Bilirubin, Total 0.3 <0.2-1.2 mg/dL A/G Ratio 1.3 1.1-2.5 CBC Fingerstick (in house) Reviewed date:04/28/2024 11:39:25 AM Interpretation: Performing Lab: Notes/Report: wbc 9.8 3.5 - 10 lym 20.0% 15 - 50 mid 5.1% 2 - 15 gran 74.9% 35 - 80 rbc 4.53 3.5 - 5.5 hgb 13.7 11.5 - 16.5 hct 41.8 35 - 55 mcv 92.4 75 - 100 mch 30.3 25 - 35 mchc 32.8 31 - 38 plat 208 100 - 400 Influenza Screen (in house) Reviewed date:04/28/2024 11:42:36 AM Interpretation:Negative Performing Lab: Notes/Report: Negative results Neg H-Urea Breath Test Reviewed date:08/05/2024 03:50:26 PM Interpretation:Negative Performing Lab: Notes/Report: Patient Height (inches): 58.00 Patient Weight (pounds): 109 HPYBREATHR Negative Negative Performed at: [address] [id number] [employer] Circuit Board Layout Designer: Alex Cheney PhD, Phone: [phone] TEN-stool panel Reviewed date:07/22/2024 09:01:48 AM Interpretation:Abnormal Performing Lab: Notes/Report: Abnormal CBC Fingerstick (in house) Reviewed date:07/17/2024 09:12:36 AM Interpretation: Performing Lab: Notes/Report: wbc 6.5 3.5 - 10 lym 31.6 15 - 50 mid 8.1 2 - 15 gran 60.3 35 - 80 rbc 4.60 3.5 - 5.5 hgb 14.1 11.5 - 16.5 hct 41.7 35 - 55 mcv 90.6 75 - 100 mch 30.6 25 - 35 mchc 33.7 31 - 38 plat 116 100 - 400 Glycohemoglobin A1c (in hous e) Reviewed date:07/17/2024 09:12:36 AM Interpretation:5.3% Performing Lab: Notes/Report: 5.3% glycohemoglobin 5.3% 5 - 6.5 % P-Vitamin B12 Reviewed date:07/17/2024 09:12:36 AM Interpretation: Performing Lab: Notes/Report: Test performed by [employer] [facility] [address] [place] [address] , [address], [place] [address] Mo Burciaga MD, Relief Pilot CLIA: [id number] Vitamin B12 550 284-8277 pg/mL P-Comprehensive Metabolic Pa augusto (CMP) Reviewed date:07/17/2024 09:12:36 AM Interpretation: Performing Lab: Notes/Report: Test performed by [employer] [address] [place] [address] , [address], [place] [address] Mo Burciaga MD, Relief Pilot CLIA: [id number] Sodium 144 135-145 mmol/L Potassium 4.5 3.5-5.3 mmol/L Chloride 105 97-108 mmol/L CO2 27 22-32 mmol/L Glucose 86 65-99 mg/dL BUN 19 8-23 mg/dL Creatinine 0.91 0.50-1.00 mg/dL Calcium 9.2 8.6-10.4 mg/dL eGFR by Creatinine 66 >59 mL/min/1.73m2 Protein 6.7 6.0-8.3 g/dL Albumin 4.2 3.5-5.3 g/dL Alkaline Phosphatase 87 35-121 IU/L ALT (SGPT) 29 <5-47 IU/L AST (SGOT) 35 <5-40 IU/L Bilirubin, Total 0.5 <0.2-1.2 mg/dL A/G Ratio 1.7 1.1-2.5 P-Lipid Panel Reviewed date:07/17/2024 09:12:36 AM Interpretation: Performing Lab: Notes/Report: Test performed by [employer] [facility], [address] , [place] [address] Mo Burciaga MD, Relief Pilot CLIA: [id number] Cholesterol 173 <200 mg/dL Triglycerides 135 <150 mg/dL HDL Cholesterol 60 >39 mg/dL Cholesterol / HDL Ratio 2.88 0.00-4.44 Ratio Non-HDL Cholesterol 113 <130 mg/dL LDL Cholesterol (Calculation) 86 <130 mg/dL LDL Cholesterol Levels* Less than 100 mg/dL Optimal 100 to 129 mg/dL Near Optimal/ Above Optimal 130 to 159 mg/dL Borderline High 160 to 189 mg/dL High 190 mg/dL and above Very High * Categories as recommended by the 2004 ATPIII guidelines LDL/HDL Ratio 1.4 <3.3 Ratio LDL Cholesterol Patient History Test Date: 05/17/2023 LDL Results: 83 Units: mg/dL % Change: - Test Date: 07/16/2024 LDL Results: 86 Units: mg/dL % Change: +3% P-Magnesium Reviewed date:07/17/2024 09:12:36 AM Interpretation: Performing Lab: Notes/Report: Test performed by [facility] [address] [place] [address] , [address], [place] [address] Mo Burciaga MD, Relief Pilot CLIA: [id number] Magnesium 2.1 1.6-2.4 mg/dL P-TSH reflex to FT4 Reviewed date:07/17/2024 09:12:36 AM Interpretation: Performing Lab: Notes/Report: Test performed by [facility] [address] [place] [address] , [address], [place] [address] Mo Burciaga MD, Relief Pilot CLIA: [id number] TSH reflex to FT4 1.89 0.43-5.25 mU/L P-Vitamin D 25-Hydroxy Reviewed date:07/17/2024 09:12:36 AM Interpretation: Performing Lab: Notes/Report: Test performed by [facility] [address] [place] [address] , [address], [place] [address] Mo Burciaga MD, Relief Pilot CLIA: [id number] Vitamin D 25-Hydroxy >120 30.0-100.0 ng/mL Interpretation of Vitamin D 25 OH: < 20 ng/mL - Deficiency 20 - 29 ng/mL - Insufficiency 30 - 100 ng/mL - Sufficiency > 100 ng/mL - Super-therapeutic- toxicity may occur above this level. Clinical correlation required. P-Vitamin D 25-Hydroxy Reviewed date:09/03/2024 04:47:17 PM Interpretation: Performing Lab: Notes/Report: Test performed by [employer] [facility] [address] [place] [address] , [address], [place] [address] Mo Burciaga MD, Relief Pilot CLIA: [id number] Vitamin D 25-Hydroxy 98.7 30.0-100.0 ng/mL Interpretation of Vitamin D 25 OH: < 20 ng/mL - Deficiency 20 - 29 ng/mL - Insufficiency 30 - 100 ng/mL - Sufficiency > 100 ng/mL - Super-therapeutic- toxicity may occur above this level. Clinical correlation required. TEN-stool panel Reviewed date:08/06/2024 11:57:25 AM Interpretation:Abnormal Performing Lab: Notes/Report: Abnormal Medications Medication SIG (Take, Route, Frequency, Duration) Notes Start Date End Date Status Lipitor 80 MG 1 tab(s) orally Two times a day Active Multivitamin 1 TAB ONCE A DAY Active Pantoprazole Sodium 40 MG 1 tablet [...] 1 tablet Orally once daily 08/22 Active Potassium Chloride ER 10 MEQ Take 1 capsule by mouth once daily for 90 days Active Hyoscyamine Sulfate 0.125 MG 1 tablet on the tongue and allow to dissolve as needed Orally four times a day as needed Active Prolia 60 MG/ML as directed subcutan eously every 6 months 07/07/2020 Active Nystatin 871411 UNIT/ML 5 ml Mouth/Throa t Four times a day 07/31/2024 Active Immunizations Vaccine Route Administration Date Status Comme nts Fluzone High Dose (65yr and older) IM Intramuscular 03/29/2015 Administered Fluzone High Dose (65yr and older) IM Intramuscular 04/06/2016 Administered Fluzone High Dose (65yr and older) IM Intramuscular 03/11/2017 Administered Fluzone High Dose (65yr and older) IM Intramuscular 03/19/2018 Administered Fluzone High Dose (65yr and older) IM Intramuscular 03/09/2019 Administered Fluzone High Dose (65yr and older) IM Intramuscular 03/04/2020 Administered Fluzone High Dose (65yr and older) IM Intramuscular 03/30/2022 Administered Fluzone High Dose (65yr and older) IM Intramuscular 04/04/2023 Administered Fluzone High Dose (65yr and older) IM Intramuscular 06/03/2024 Administered PNEUMOVAX 23 VACCINE IM Intramuscular 06/11/2020 Administe red Prevnar (PCV13) IM Intramuscular 06/01/2014 Administered Shingrix Unknown 04/26/2023 Administered Tetanus Tdap-Adacel (over 7yrs) IM Intramuscular 01/31/2012 Administered xAdministration of injection SC Subcutaneous 06/01/2014 Administered xFlu shot-36 months and older IM Intramuscular 05/14/2005 Administered xFlu shot-36 months and older IM Intramuscular 05/28/2007 Administered xFlu shot-36 months and older IM Intramuscular 04/15/2008 Administered xFlu shot-36 months and older IM Intramuscular 02/26/2009 Administered xFluzone (6mos and older)-trivalent IM Intramuscular 04/14/2011 Administered xFluzone (6mos and older)-trivalent IM Intramuscular 03/29/2012 Administered xFluzone High Dose-private (65yr&older) IM Intramuscular 03/13/2014 Administered xFluzone Intradermal (18-64yrs)-trivalent ID Intradermal 03/31/2013 Administered Problems Problem Type SNOMED Code ICD Code Onset Dates Problem Status W/U Status Risk Notes Problem 65035983 Vitamin D deficiency (E55.9) Active confirmed Problem 72559365 Essential hypertension (I10) Active confirmed Problem 70790390 Anxiety (F41.9) Active confirmed Problem 251208240320057 Piriformis syndr ome of left side (G57.02) Active confirmed Problem Mixed hyperlipidemia (155727603) Mixed hyperlipidemia (E78.2) Active confirmed Problem 391243300 Benign essential tremor (G25.0) Active confirmed Problem Osteoporosis (41312132) Osteoporosis (M81.0) Active confirmed Problem 71986010 Other cardiac arrhythmia (I49.8) Active confirmed Problem 07527528 Lack of appetite (R63.0) Active confirmed Problem 80796634 Premature beats (I49.49) Active confirmed Problem 92706771 Osteoporosis, unspecified osteoporosis type, unspecified pathological fracture presence (M81.0) Active confirmed Problem 575893331 Gastroesophageal reflux disease, unspecified whether esophagitis present (K21.9) Active confirmed Problem 143976255 Fibromuscular dysplasia (I77.3) Active confirmed Vital Signs Heart Rate 63 /min 09/02/2024 Blood pressure diastolic 70 mm Hg 09/02/2024 Height 59 in 09/02/2024 Blood pressure systolic 134 mm Hg 09/02/2024 Weight 110.8 lbs 09/02/2024 BMI 22.38 kg/m2 09/02/2024 Encounters Encounter Location Date Provider Diagnosis [facility] [address] [facility] [address] [place], [place] [id number] 04/24/2024 Marlene Whitley Essential hypertensi on I10 ; Anxiety F41.9 ; Osteoporosis M81.0 ; Right carotid bruit R09.89 ; Acute URI J06.9 ; Bronchitis J40 and Trigger ring finger of right hand M65.341 [facility] [address] [facility] [address] [place], [place] [id number] 06/03/2024 Princess Cheek Encounter for immunization Z23 [facility] [address] [facility] [address] [place], [place] [id number] 07/16/2024 Princess Adia Abdominal pain, epigastric R10.13 ; Abdominal cramps R10.9 ; Vitamin B12 deficiency E53.8 ; Vitamin D deficiency E55.9 ; Brain fog R41.89 ; Essential hypertension I10 ; Benign essential tremor G25.0 ; Impaired fasting glucose R73.01 and Mixed hyperlipidemia E78.2 [facility] [address] [facility] [address] [place], [place] [id number] 07/31/2024 Princess Adia Epigastric abdominal pain R10.13 ; Abdominal cramps R10.9 and Thrush, oral B37.0 [facility] [address] [facility] [address] [place], [place] [id number] 08/03/2024 Princess Crowdy [facility] [address] [facility] [address] [place] [id number] 09/02/2024 Princess Adia Vitamin D deficiency E55.9 and Thrush, oral B37.0 [facility] [address] [facility] [address] [place], [place] [id number] 02/25/2024 Marlene Whitley [facility] [address] [place] [id number] 05/15/2024 Marlene Whitley [facility] [address] [place] [id number] 07/17/2024 Princess Adia [facility] [address] [facility] [address] [place] [id number] 07/22/2024 Princess Cheek [facility] [address] [place] [id number] 08/06/2024 Princess Cheek [facility] [address] [place] [id number] 08/07/2024 Princess Cheek [facility] [address] [place] [id number] 08/20/2024 Princess Cheek Thrush, oral B37.0 [facility] [address] [place] [id number] 09/03/2024 Marlene Whitley [facility] [address] [place] [id number] 09/03/2024 Princess Cheek [facility] [address] [place], [place] [id number] 12/02/2024 Marlene Whitley Assessments Encounter Date Diagnosis (ICD Code) Assessment Notes Treatment Notes Treatment Clinical Notes Section Notes 04/24/2024 Essential hypertension (ICD-10 - I10) 04/24/2024 Anxiety (ICD-10 - F41.9) 06/03/2024 Encounter for immunization (ICD-10 - Z23) 07/16/2024 Abdominal pain, epigastric (ICD-10 - R10.13) Patient is going to call and get back into her GI. Will get a stool panel as her stools have changed. 07/16/2024 Abdominal cramps (ICD-10 - R10.9) 07/31/2024 Epigastric abdominal pain (ICD-10 - R10.13) 08/20/2024 Thrush, oral (ICD-10 - B37.0) 09/02/2024 Vitamin D deficiency (ICD-10 - E55.9) 09/02/2024 Thrush, oral (ICD-10 - B37.0) 07/31/2024 Abdominal cramps (ICD-10 - R10.9) Will stop abx and recheck another stool panel. Will also check a urea breath test. Will try the levsin. She has an appt with her GI but it is not until September. She will likely need an EGD/C-scope. 07/31/2024 Thrush, oral (ICD-10 - B37.0) 07/16/2024 Vitamin B12 deficiency (ICD-10 - E53.8) 04/24/2024 Osteoporosis (ICD-10 - M81.0) 04/24/2024 Right carotid bruit (ICD-10 - R09.89) 07/16/2024 Vitamin D deficiency (ICD-10 - E55.9) 04/24/2024 Acute URI (ICD-10 - J06.9) 07/16/2024 Brain fog (ICD-10 - R41.89) Will check labs. 07/16/2024 Essential hypertension (ICD-10 - I10) 04/24/2024 Bronchitis (ICD-10 - J40) 04/24/2024 Trigger ring finger of right hand (ICD-10 - M65.341) 07/16/2024 Benign essential tremor (ICD-10 - G25.0) 07/16/2024 Impaired fasting glucose (ICD-10 - R73.01) 07/16/2024 Mixed hyperlipidemia (ICD-10 - E78.2) Plan Of Treatment No Information Insurance Providers Payer Name Payer Address Payer Phone Subscriber Number Group Number Insured Name Patient Relationship to Insured Coverage Start Date Coverage End Date MEDICARE PART B [address] [address] Rafaelateresa travon [place] [address] [phone] [id number] KRAIG ZAVALA Self - patient is the insured [facility] [employer] [address] [address] [place] [address] [id number] KRAIG ZAVALA Self - patient is the insured Medical (General) History Medical History History ICD Code osteopenia hematuria, chronic dysrhthmia right carotid bruit/disease irritable bowel syndrome Fibromuscular Dysplasia Surgical History Surgery Date(Month/Year) Hospitalization History Reason Date(Month/Year)
--- OUTSIDE RECORDS SUMMARY | 2024-12-03 09:47 | XMS_ITS | Patient Health Record ---
Author Organization [facility] Address [address] [facility] [address] [place] [address] Care Team Providers Care Orthotics Prosthetics Assistant Name Role Phone Karlene Jeffers Unavailable [phone] Alicia Cardenas Unavailable [phone] Allergies No Known Allergies Results Component Value Reference Range Notes Pap w/HPV Reviewed date:04/02/2024 01:15:05 PM Interpretation:Pap normal, HPV negative Performing Lab:[facility] CLIA ID [id number], [address] [facility] [address], [address], [place] [address], Director - Evette Mcgee MD Notes/Report: Any Nucleic Acid Amplification testing is performed on the A[employer] Mobile [employer]. Diagnosis: Negative for intraepithelial lesion or malignancy. AP results FINAL MATERIAL STRESS TESTER CYTOLOGY REPORT DIAGNOSIS: Negative for intraepithelial lesion or malignancy. Specimen Adequacy: Satisfactory for interpretation with endocervical/transformat ion zone component absent, history noted. Pertinent Clinical History/History of Surgery: Not provided Collection Technique: Not provided Results of Last Pap: Not provided LMP: None Date of Last Pap: Not provided Specimen Source: Cervical/Endocervical Specimen Type: ThinPrep Other Gynecological Patient Information: Not provided Recommendation: Follow-up based on current clinical guidelines and/or clinical consideration. Screening note: This specimen has been analyzed by the [employer] Imaging System, an interactive computer system which assists the lab in screening of ThinPrep Pap Test slides. Following imaging, the slide was reviewed by a Business Analysis Consultant and/or Pathologist. Negative Educational Note: The pap screening test aids in the detection of premalignant and malignant states of the cervix. False positive and negative results may occur. It is not a diagnostic test. If abnormal cells are reported, follow-up based on current clinical guidelines and/or clinical consideration is recommended. Yahaira Gilbert Business Analysis Consultant CPT Codes: 04807 ICD Codes: Z01.419 HPV High-Risk Negative Negative Reason For Referral No Information Medications Medication SIG (Take, Route, Frequency, Duration) Notes Start Date End Date Status Vitamin C 500 MG Tablet 1 tablet Orally Once a day Active Vitamin D 50 MCG (1999) Tablet 1 tablet Orally Once a day Active Potassium Active Prolia Active Pantoprazole Sodium 40 MG Tablet Delayed Release 1 tablet Orally Once a day Active Aspirin 81 MG Capsule 1 tablet Orally On ce a day Active Calcium 500 MG Tablet 2 tablets Orally O nce a day Active PARoxetine HCl 10 MG Tablet 1 tablet in the morning Orally Once a day Active Atorvastatin Calcium 80 MG Tablet 1 tablet Orally Once a day Active Bisoprolol Fumarate 10 MG Tablet 1 tablet Orally twice daily Active Social History Social History Drugs/Alcohol: Social Info Question Answer Notes Drugs Have you used drugs other than those for medical reasons in the past 12 months? No Alcohol Screen Did you have a drink containing alcohol in the past year? No Points 0 Interpretation Negative Problems Problem Type SNOMED Code ICD Code Onset Dates Problem Status W/U Status Risk Notes Problem Bone densimetry abnormal (819911851) Abnormal bone density screening (M85.80) 012 Active confirmed OSTEOPENIA Problem Abdominal pain (finding) (01575786) Abdominal and pelvic pain (R10.30) 011 Active confirmed ABDOMINAL PAIN, LOWER Problem Gynecological examination normal (739376335345711 ) Cervical smear, as part of routine gynecological examination (Z01.419) 018 Active confirmed Annual without abnormal findings Problem Atypical squamous cells of undetermined significance on cervical Papanicolaou smear (878948482) ASCUS of cervix with negative high risk HPV (R87.610) 012 Active confirmed ASCUS Problem Adult health examination (860539344) Adult general medical exam (Z00.00) 011 Active confirmed ANNUAL EXAM Vital Signs Blood pressure diastolic 70 mm Hg 03/26/2024 Height 58.5 in 03/26/2024 Blood pressure systolic 100 mm Hg 03/26/2024 Weight 117.0 lbs 03/26/2024 BMI 24.03 kg/m2 03/26/2024 Encounters Encounter Location Date Provider Diagnosis [facility] [address] [address] [place] [address] 03/26/2024 Alicia Cardenas Electromedical Equipment Repairer exam without abnormal findings Z01.419 and Visit for screening mammogram Z12.31 Assessments Encounter Date Diagnosis (ICD Code) Assessment Notes Treatment Notes Treatment Clinical Notes Section Notes 03/26/2024 Electromedical Equipment Repairer exam without abnormal findings (ICD-10 - Z01.419) Normal annual exam Pap obtained BSE encouraged MMG, colonoscopy, and DEXA UTD Follow up annual exam or PRN 03/26/2024 Visit for screening mammogram (ICD-10 - Z12.31) Plan Of Treatment No Information Insurance Providers Payer Name Payer Address Payer Phone Subscriber Number Group Number Insured Name Patient Relationship to Insured Coverage Start Date Coverage End Date [place] [address] [place] [address] [id number] Theresa Hurst Self - patient is the insured [facility] [address] [place], [place] [phone] [id number] Theresa Hurst Self - patient is the insured Medical (General) History Medical History History ICD Code osteoporosis IBS Anxiety Abnormal Pap Smear Fibromuscular dysplasia of cervocranial artery Essential Tremors Surgical History Surgery Date(Month/Year) Removed lypoma from shoulder Right breast lumpectomy - beinign
== END 2024-12-03 10:07 | disposition home or self-care (01) ==
LOC: INF 09:35
PROVIDERS: PCP Family Medicine; Visit Provider Family Medicine
DX: M81.0 Age-related osteoporosis without current pathological fracture (principal)
CPT/HCPCS: 96372; J0897

== ENCOUNTER 2025-06-07 09:31 | Outpatient (CLI) | payer MEDICARE, OTHER, SELFPAY ==
[2025-06-07 09:43] VITALS: BP 159/80; PULSE 85; RESP 20; O2SAT 97
[2025-06-07] MEDS: DENOSUMAB 60 MG/ML SYRINGE SUBCUT (09:45)
== END 2025-06-07 23:59 | disposition home or self-care (01) ==
LOC: INF 09:32
PROVIDERS: PCP Family Medicine; Visit Provider Family Medicine
DX: M81.0 Age-related osteoporosis without current pathological fracture (principal)
CPT/HCPCS: 96372; J0897